=== PATIENT | female | born 1950 | race Two or more races ===

== ENCOUNTER 2025-01-06 16:25 | Inpatient (IN) | payer MEDICARE, MEDICAID ==
[~2025-01-06] VITALS: Ht 147.3 cm; Wt 60.1 kg
--- NOTE | 2025-01-06 16:56 | ED.PDOC ---
History of Present Illness HPI Comments 74-year-old female presents to the ER with daughter and with prior medical history of hypertension, diabetes: Surgical history of cardiac stent, appendectomy, hysterectomy, breast surgery and a chief complaint of abdominal pain. Daughter reports that the patient has been having dizziness, nausea, and lower abdominal pain recently. Daughter states that the patient fell two days ago and currently has left shoulder pain. Patient notes that she is unable to have a BM. Denies chills, fever, /V/D, SOB, CP. No other associated symptoms, modifiers, recent injuries or sick contacts present at this time. Chief Complaint: Abdominal Pain Time Seen by MD: 16:50 Reviewed Notes: Nurses Notes, Medications, Allergies Allergies: Coded Allergies: NO KNOWN ALLERGIES (Unverified , 01/06/25) Information Source: Patient Mode of Arrival: Ambulatory Severity: Moderate Timing: Came on: Gradually Duration: Since onset Prehospital treatment: None Past Medical History PAST MEDICAL HISTORY: DM, HTN Surgical History: Appendectomy, Hysterectomy, PTCA Surgical History (Other): Breast surgery COUNCILMAN History: No Pertinent COUNCILMAN History Family History Family History: Reviewed,noncontributory to illness, Unknown Social History Smoker: Non-Smoker Alcohol: Denies ETOH Use Drugs: Denies Drug Use Lives In: Home Constitutional: denies: chills, diaphoresis, fatigue, fever, malaise, sweats, weakness, others EENTM: denies: blurred vision, double vision, ear bleeding, ear discharge, ear drainage, ear pain, ear ringing, eye pain, eye redness, hearing loss, mouth pain, mouth swelling, nasal discharge, nose bleeding, nose congestion, nose pain, photophobia, tearing, throat pain, throat swelling, voice changes, others Respiratory: denies: cough, hemoptysis, orthopnea, SOB at rest, shortness of breath, SOB with excertion, stridor, wheezing, others Cardiovascular: denies: chest pain, dizzy spells, diaphoresis, Dyspnea on exertion, edema, irregular heart beat, left arm pain, lightheadedness, palpitations, PND, syncope, others Gastrointestinal: reports: abdominal pain, nausea; denies: abdomen distended, blood streaked bowels, constipated, diarrhea, dysphagia, difficulty swallowing, hematemesis, melena, poor appetite, poor fluid intake, rectal bleeding, rectal pain, vomiting, others Genitourinary: denies: abnormal vagina bleeding, burning, dyspareunia, dysuria, flank pain, frequency, hematuria, incontinence, pain, , vagina discharge, urgency, others Neurological: reports: dizziness; denies: fainting, headache, left sided numbness, left sided weakness, numbness, paresthesia, pre-existing deficit, right sided numbness, right sided weakness, seizure, speech problems, tingling, tremors, weakness, others Musculoskeletal: denies: back pain, gout, joint pain, joint swelling, muscle pain, muscle stiffness, neck pain, others Integumetry: denies: bruises, change in color, change in hair/nails, dryness, laceration, lesions, lumps, rash, wounds, others Allergic/Immunocompromised: denies: Difficulty Healing, Frequent Infections, Hives, Itching, others Hematologic/Lymphatic: denies: anemia, blood clots, easy bleeding, easy bruisi ng, swollen glands, others Endocrine: denies: excessive hunger, excessive sweating, excessive thirst, exce ssive urination, flushing, intolerance to cold, intolerance to heat, unexplained weight gain, unexplained weight loss, others Psychiatric: denies: anxiety, bipolar disorder, depression, hopeless, panic disorder, schizophrenia, sleepless, suicidal, others All Other Systems: Reviewed and Negative Physical Exam General Appearance: Moderate Distress, Normal HEENT: Normal ENT Inspection, Pharynx Normal, TMs Normal Neck: Full Range of Motion, Non-Tender, Normal, Normal Inspection Respiratory: Chest Non-Tender, Lungs Clear, No Accessory Muscle Use, No Respiratory Distress, Normal Breath Sounds Cardiovascular: No Edema, No JVD, No Murmur, No Gallop, Normal Peripheral Pulses, Regular Rate/Rhythm Breast Exam: Deferred Gastrointestinal: No Organomegaly, Non Tender, No Pulsatile Mass, Normal Bowel Sounds, Soft Genitalia: Deferred Pelvic: Deferred Rectal: Deferred Extremities: No calf tenderness, Normal capillary refill, Normal inspection, Normal range of motion, Non-tender, No pedal edema Musculoskeletal : Apperance: Normal Neurologic: Alert, full time paramedic II-XII nml as Tested, No Motor Deficits, Normal Affect, Normal Mood, No Sensory Deficits Cerebellar Function: NOT DONE Reflexes: NOT DONE Skin: Dry, Normal Color, Warm Peripheral Pulses: 3+ Radial (R), 3+ Radial (L) Lymphatic: No Adenopathy Was a procedure done? Was a procedure done?: No Differential Dx Considerations may include: Anemia Electrolyte imbalance X-Ray, Labs, Meds, VS Vital Signs Date Time Temp Pulse Resp B/P (MAP) Pulse Ox O2 Delivery O2 Flow Rate FiO2 01/06/25 16:27 97.7 72 15 140/71 95 97.7 Lab Test 01/06/25 17:07 Range/Units White Blood Count 7.1 4.4-10.8 10^3/uL Red Blood Count 4.16 4.0-5.20 10^6/uL Hemoglobin 13.0 12.2-16.2 g/dL Hematocrit 36.6 36.0-46.0 % Mean Corpuscular Volume 87.9 80.0-100.0 fL Mean Corpuscular Hemoglobin 31.2 28.0-32.0 pg Mean Corpuscular Hemoglobin Concent 35.5 32.0-36.0 g/dL Red Cell Distribution Width 13.8 11.8-14.3 % Platelet Count 245 140-450 10^3/uL Mean Platelet Volume 7.6 6.9-10.8 fL Neutrophils (%) (Auto) 64.4 37.0-80.0 % Lymphocytes (%) (Auto) 20.4 10.0-50.0 % Monocytes (%) (Auto) 12.2 H 0.0-12.0 % Eosinophils (%) (Auto) 2.3 0.0-7.0 % Basophils (%) (Auto) 0.7 0.0-2.0 % Neutrophils # (Auto) 4.6 1.6-8.6 10 ^3/uL Lymphocytes # (Auto) 1.4 0.4-5.4 10 ^3/uL Monocytes # (Auto) 0.9 0-1.3 10 ^3/uL Eosinophils # (Auto) 0.2 0-0.8 10 ^3/uL Basophils # (Auto) 0 0-0.2 10 ^3/uL Nucleated Red Blood Cells 0.0 % Sodium Level 127 L 136-145 mmol/L Potassium Level 4.8 3.5-5.1 mmol/L Chloride Level 93 L 98-107 mmol/L Carbon Dioxide Level 25 20-31 mmol/L Anion Gap 9 5-15 Blood Urea Nitrogen 14 9-23 mg/dL Creatinine 0.78 0.550-1.02 mg/dL Glomerular Filtration Rate Calc 79 >90 mL/min BUN/Creatinine Ratio 17.9 10.0-20.0 Serum Glucose 157 H 74-106 mg/dL Calcium Level 9.7 8.7-10.4 mg/dL Total Bilirubin 1.2 H 0.2-1.0 mg/dL Aspartate Amino Transferase (AST) 41 H 13-40 U/L Alanine Aminotransferase (ALT) 36 7-40 U/L Alkaline Phosphatase 74 46-116 U/L Troponin I High Sensitivity 304 *H </=34 ng/L Total Protein 7.2 5.7-8.2 g/dL Albumin 4.5 3.2-4.8 g/dL Lipase 54 H 12-53 U/L Patient alert. Complaining of epigastric discomfort. EKG reviewed does show changes. Vitals stable. She does have coronary artery disease. Was given aspirin. Troponin elevated. Was given Lovenox. Send EKG to Cardiology. Pancreas slightly inflamed not pancreatitis. Ultrasound. Sodium slightly low. Possibly will need GI consultation for endoscope. Echocardiogram. Explained to the family. Continue to monitor. Time of 1ST Reevaluation: 17:20 Reevaluation 1ST: Unchanged Patient Education/Counseling: Diagnosis, Treatment, Prognosis Family Education/Counseling: No Family Present SEPSIS Sepsis Screen Date sepsis recognized/suspect: Jan 06, 2025 Time Sepsis recognized/suspect: 1628 Recent Procedure: No On Antibiotic Therapy: No Respiratory Rate >20: No Heart Rate >90: No Temp<36 C (96.8 F) or >38.3 C: No SBP <90 or MAP <65 mmHG: No New Acute Mental Status Change: No Is the patient on CPAP, BIPAP,: No Physician Orders Troponin-I Hs (01/06/25 18:00) Troponin-I Hs (01/07/25 00:00) Troponin-I Hs (01/07/25 03:00) Urinalysis (01/06/25 16:47) Sodium Chloride 0.9% (01/06/25 17:00) Ct Ab Pel Wo Con-No Oral Or Iv (01/06/25 16:47) Troponin-I Hs (01/06/25 19:47) Enoxaparin Sodium (Lovenox) (01/06/25 17:45) * Cardiology Consult (01/06/25 17:35) Vital Signs Date Time Temp Pulse Resp B/P (MAP) Pulse Ox O2 Delivery O2 Flow Rate FiO2 01/06/25 16:27 97.7 72 15 140/71 95 97.7 Laboratory Tests Test 01/06/25 17:07 White Blood Count 7.1 10^3/uL (4.4-10.8) Departure 1 Departure Time of Disposition: 17:27 Impression: Primary Impression: Chest pain of unknown etiology Additional Impressions: NSTEMI (non-ST elevated myocardial infarction) Hyponatremia Gastritis Qualified Codes: K29.00 - Acute gastritis without bleeding Disposition: ADMITTED INPATIENT Admit to: Med Surg Condition: Guarded Critical Care Note Critical Care Time?: Yes (90 min-critical care time only) Stability Stability form required: No Heart Score Heart Score: Heart Score Response (Comments) Value History Slightly Suspicious 0 EKG Normal 0 Age >65 2 Risk Factors >3 or Hx ASHD 2 Troponin Normal limit 0 Total 4 I personally scribed for BEKA OQUENDO MD ([email or web address]) on 01/06/25 at 16:56. Electronically submitted by Cristian Carrillo ([email or web address]). BEKA OQUENDO MD Jan 06, 2025 16:56
[2025-01-06 17:25] LABS: Hematocrit 36.6 % (36.0-46.0); Hemoglobin 13.0 g/dL (12.2-16.2); Mean Corpuscular Hemoglobin 31.2 pg (28.0-32.0); Mean Corpuscular Volume 87.9 fL (80.0-100.0); Nucleated Red Blood Cells % 0.0 %
[2025-01-06 17:31] LABS: Alanine Aminotransferase 36 U/L (7-40); Albumin 4.5 g/dL (3.2-4.8); Alkaline Phosphatase 74 U/L (46-116); Anion Gap 9 (5-15); BUN/Creatinine Ratio 17.9 (10.0-20.0); Bilirubin, Total 1.2 mg/dL (0.2-1.0); Blood Urea Nitrogen 14 mg/dL (9-23); Calcium 9.7 mg/dL (8.7-10.4); Carbon Dioxide 25 mmol/L (20-31); Chloride 93 mmol/L (98-107); Glucose 157 mg/dL (74-106); Lipase 54 U/L (12-53); Potassium 4.8 mmol/L (3.5-5.1); Sodium 127 mmol/L (136-145); Total Protein 7.2 g/dL (5.7-8.2)
[2025-01-06] MEDS: SODIUM CHLORIDE 0.9% 1,000 ML IVB ONE (18:14)
[2025-01-06] MEDS: ONDANSETRON HCL 4 MG/2 ML VIAL IV ONE (18:23)
[2025-01-06] MEDS: ENOXAPARIN SOD 60 MG/0.6 ML SYRINGE SC ONE (18:24)
[2025-01-06] MEDS: MORPHINE SULFATE 4 MG/ML SYR/VIAL IV ONE (18:24)
--- NOTE | 2025-01-06 18:48 | DVH ---
Exam: CT CT AB PEL WO CON-NO ORAL OR IV History: gastritis Comparison Study: None TECHNIQUE: Multidetector CT of the abdomen and pelvis was performed from lung bases to pubic symphysi s. Imaging was performed without IV contrast. Axial, coronal, and sagittal multiplanar reformats were obtained from the axial data set by the technologist. RADIATION DOSE: DLP 358.31 mGy.cm; CTDI vol 6.91 mGy. Findings: Lungs: Right lower lobe peripheral nodular opacities. Right lower lobe granuloma. Heart: No cardiomegaly or pericardial effusion. Severe coronary atherosclerosis versus stents. Liver: Unremarkable. Gallbladder: Cholecystectomy. Spleen: Unremarkable Pancreas: Unremarkable Adrenals: Unremarkable Kidneys: Nonobstructive left nephrolithiasis. GI tract: Small hiatal hernia. Diverticulosis without evidence of acute diverticulitis. : Unremarkable. Vasculature: Mild aortoiliac atherosclerosis. Lymphadenopathy: Absent Peritoneum: No ascites Musculoskeletal: Severe multilevel degenerative changes of the thoracolumbar spine. Soft tissues: Miniscule fat containing periumbilical hernia. Bilateral gluteal injection granulomas. Unremarkable Impression: 1. No acute abdominopelvic abnormalities. 2. Diverticulosis without evidence of acute diverticulitis. 3. Small hiatal hernia. 4. Nonobstructive left nephrolithiasis. 5. Right lower lobe peripheral nodular opacities may reflect an infectious / inflammatory etiology.
[2025-01-06 19:22] LABS: Urine Protein, UAD Negative (Negative)
[2025-01-06] MEDS ORDERED: ONDANSETRON HCL 4 MG/2 ML VIAL IV PRN (22:30)
[2025-01-06] MEDS ORDERED: ACETAMINOPHEN 325 MG TAB PO PRN (22:30)
[2025-01-06] MEDS ORDERED: ATORVASTATIN 20 MG TAB PO SCH (23:00)
--- NOTE | 2025-01-06 23:14 | DVHHPRES ---
History of Present Illness Resident Creating Document: JAYNE ESCOBAR RESIDENT History of Present Illness Patient is a Albanian-speaking 74-year-old female with past medical history of diabetes mellitus, hypertension, breast cancer, gastritis came to the ED with chief complaint of lower abdominal pain which is 7/10 in intensity, radiating to bilateral flanks, associated with nausea ,urinary frequency, burning sensation with urinating, dysuria 1 episode of vomiting since 4 days, and dizziness since 1 week. Patient states that she did not fall but has injured her left shoulder and left ankle due to loss of balance. Patient also complained of mild chest pain after coming to the hospital. Patient denies any fever, chills, diarrhea, shortness of breath, palpitations, headache, dizziness. Patient is compliant with home medications. On arrival troponins were elevated. Patient is admitted for further management. Past medical history of diabetes mellitus, hypertension, breast cancer, gastritis Surgical history: Hysterectomy, appendicectomy, cholecystectomy, PTCA, malignant tumor removed in left breast, Family history: Reviewed, noncontributory Personal history: Denies any smoking, drinking, drug use Lives with: Family PCP: Dr. Felipe Review of Systems Constitutional: No: Fever, Chills, Sweats, Weakness, Malaise, Other Eyes: No: Pain, Vision change, Conjunctivae inflammation, Eyelid inflammation, Other, Redness ENT: No: Ear pain, Ear discharge, Nose pain, Nose discharge, Nose congestion, Mouth pain, Mouth swelling, Throat pain, Throat swelling, Other Respiratory: No: Cough, Dry, Shortness of breath, SOB with excertion, Wheezing, Hemoptysis, Pleuritic Pain, Sputum, Wheezing, Other Cardiovascular: No: Chest Pain, Palpitations, Orthopnea, Paroxysmal Noc. Dyspnea, Edema, Lt Headedness, Other Gastrointestinal: Nausea, Vomiting, Abdominal Pain; No: Diarrhea, Constipation, Melena, Hematochezia, Other Genitourinary: Dysuria, Frequency; No Incontinence, No Hematuria, No Retention, No Other Musculoskeletal: No: other, neck pain, shoulder pain, arm pain, back pain, hand pain, leg pain, foot pain Skin: No: Rash, Lesions, Jaundice, Bruising, Other Neurological: No: Weakness, Numbness, Incoordination, Change in speech, Confusion, Seizures, Other Allergies: Coded Allergies: NO KNOWN ALLERGIES (Unverified , 01/06/25) Medications Current Medications Medications Dose Ordered Sig/Maciel Route Start Time Stop Time Status Last Admin Dose Admin Ondansetron HCl 4 mg Q4HP PRN IV 01/06/25 22:30 Acetaminophen 650 mg Q6HP PRN PO 01/06/25 22:30 Atorvastatin Calcium 40 mg ONCE PO 01/06/25 23:00 UNV Aspirin 81 mg ONCE PO 01/06/25 23:00 UNV Exam Vital Signs Vital Signs Date Time Temp Pulse Resp B/P (MAP) Pulse Ox O2 Delivery O2 Flow Rate FiO2 01/06/25 18:24 67 20 114/66 01/06/25 18:20 98.0 97 98.0 Exam General: Patient alert and oriented in person, place and time. Patient following commands. In mild distress HEENT: Normocephalic, atraumatic, moist mucous membranes Respiratory/pulmonary: Clear lungs bilaterally, vesicular murmurs present in almost all lung ya, no associated crackles or wheezes. Cardiovascular: Normal heart sounds S1 and S2 with no associated murmurs Abdomen: Bilateral flank tenderness, CVA tenderness positive, suprapubic tenderness Extremities: There is no peripheral edema present at the lower extremities. Peripheral Pulses: 3+ Radial (R). 3+ Radial (L). 3+ Dorsalis pedis (R). 3+ Dorsalis pedis(L) Skin: No rashes or pruritus, there is no sacral edema present at this time. Neurological: Intact cranial nerves with no focal neurologic deficits Psych/mood: Psych/mood normal Labs/Xrays Labs Test 01/06/25 20:37 01/06/25 17:45 01/06/25 17:07 Range/Units Troponin I High Sensitivity 220 *H </=34 ng/L Urine Color Colorless Yellow Urine Clarity Turbid H Clear Urine pH 6.5 5.0-9.0 Urine Specific [place] 1.005 1.001-1.035 Urine Protein Negative Negative Urine Ketones Negative Negative Urine Blood Negative Negative /uL Urine Nitrite Negative Negative Urine Bilirubin Negative Negative Urine Urobilinogen Normal Negative mg/dL Urine Leukocyte Esterase Negative Negative /uL Urine RBC 1 0 - 4 /hpf Urine Microscopic WBC 2 0-5 /HPF Urine Squamous Epithelial Cells Mod <5 /hpf Urine Bacteria None seen None Seen /hpf Urine Glucose Normal Normal mg/dL White Blood Count 7.1 4.4-10.8 10^3/uL Red Blood Count 4.16 4.0-5.20 10^6/uL Hemoglobin 13.0 12.2-16.2 g/dL Hematocrit 36.6 36.0-46.0 % Mean Corpuscular Volume 87.9 80.0-100.0 fL Mean Corpuscular Hemoglobin 31.2 28.0-32.0 pg Mean Corpuscular Hemoglobin Concent 35.5 32.0-36.0 g/dL Red Cell Distribution Width 13.8 11.8-14.3 % Platelet Count 245 140-450 10^3/uL Mean Platelet Volume 7.6 6.9-10.8 fL Neutrophils (%) (Auto) 64.4 37.0-80.0 % Lymphocytes (%) (Auto) 20.4 10.0-50.0 % Monocytes (%) (Auto) 12.2 H 0.0-12.0 % Eosinophils (%) (Auto) 2.3 0.0-7.0 % Basophils (%) (Auto) 0.7 0.0-2.0 % Neutrophils # (Auto) 4.6 1.6-8.6 10 ^3/uL Lymphocytes # (Auto) 1.4 0.4-5.4 10 ^3/uL Monocytes # (Auto) 0.9 0-1.3 10 ^3/uL Eosinophils # (Auto) 0.2 0-0.8 10 ^3/uL Basophils # (Auto) 0 0-0.2 10 ^3/uL Nucleated Red Blood Cells 0.0 % Sodium Level 127 L 136-145 mmol/L Potassium Level 4.8 3.5-5.1 mmol/L Chloride Level 93 L 98-107 mmol/L Carbon Dioxide Level 25 20-31 mmol/L Anion Gap 9 5-15 Blood Urea Nitrogen 14 9-23 mg/dL Creatinine 0.78 0.550-1.02 mg/dL Glomerular Filtration Rate Calc 79 >90 mL/min BUN/Creatinine Ratio 17.9 10.0-20.0 Serum Glucose 157 H 74-106 mg/dL Calcium Level 9.7 8.7-10.4 mg/dL Total Bilirubin 1.2 H 0.2-1.0 mg/dL Aspartate Amino Transferase (AST) 41 H 13-40 U/L Alanine Aminotransferase (ALT) 36 7-40 U/L Alkaline Phosphatase 74 46-116 U/L Total Protein 7.2 5.7-8.2 g/dL Albumin 4.5 3.2-4.8 g/dL Lipase 54 H 12-53 U/L SEPSIS Sepsis Screen Date sepsis recognized/suspect: Jan 06, 2025 Time Sepsis recognized/suspect: 1628 Recent Procedure: No On Antibiotic Therapy: No Respiratory Rate >20: No Heart Rate >90: No Temp<36 C (96.8 F) or >38.3 C: No SBP <90 or MAP <65 mmHG: No New Acute Mental Status Change: No Is the patient on CPAP, BIPAP,: No Physician Orders Troponin-I Hs (01/07/25 00:00) Troponin-I Hs (01/07/25 03:00) Ct Ab Pel Wo Con-No Oral Or Iv (01/06/25 16:47) * Cardiology Consult (01/06/25 17:35) Electrocardigram (01/06/25 17:43) Electrocardigram (01/06/25 18:43) Electrocardigram (01/06/25 20:43) Admit (01/06/25 22:23) Allergies (01/06/25 22:23) Ondansetron Hcl (Zofran) (01/06/25 22:30) Complete Blood Count (01/07/25 04:00) Comprehensive Metabolic Panel (01/07/25 04:00) Npo (Nothing By Mouth) Diet (01/07/25 Breakfast) Condition: Serious (01/06/25 22:23) Acetaminophen Tablet (Tylenol Tablet) (01/06/25 22:30) Bedrest With Bathroom Privileg (01/06/25 22:23) Oxygen By Nasal Cannula (01/06/25 22:23) Stat Ekg For Chest Pain (01/06/25 22:23) Notify Md Of Changes From Base (01/06/25 22:23) Burr Machine Operator For 24 Hours (01/06/25 22:23) Emergency Dysrhythmia Protocol (01/06/25 22:23) Rhythm Strips Once Every Shift (01/06/25 22:23) Lactic Acid W/ Reflex Order (01/06/25 22:47) Prothrombin Time W/ Inr (01/06/25 22:47) Lipase (01/07/25 04:00) Drug Screen (01/06/25 22:47) Urine Bacterial Culture (01/06/25 22:47) Mrsa Screen (01/06/25 22:47) Aspirin Tablet (01/07/25 10:00) Atorvastatin (Lipitor) (01/07/25 22:00) Docusate Sodium Capsule (Colace Capsule) (01/06/25 23:15) Sodium Chloride 0.9% (01/06/25 23:15) Urine Sodium (01/06/25 23:08) Osmolality Urine (01/06/25 23:08) Osmolality, Serum (01/06/25 23:08) Vital Signs Date Time Temp Pulse Resp B/P (MAP) Pulse Ox O2 Delivery O2 Flow Rate FiO2 01/06/25 18:24 67 20 114/66 01/06/25 18:20 98.0 67 20 114/66 (82) 97 98.0 01/06/25 16:35 73 01/06/25 16:27 97.7 72 15 140/71 95 97.7 Laboratory Tests Test 01/06/25 17:07 White Blood Count 7.1 10^3/uL (4.4-10.8) Medications Medications Dose Ordered Sig/Maciel Route Start Time Stop Time Status Last Admin Dose Admin Aspirin 325 mg ONCE ONCE PO 01/06/25 17:00 01/06/25 17:01 DC 01/06/25 18:22 325 MG Enoxaparin Sodium 60 mg ONCE ONCE SC 01/06/25 17:45 01/06/25 17:46 DC 01/06/25 18:24 60 MG Morphine Sulfate 4 mg ONCE ONCE IV 01/06/25 17:00 01/06/25 17:01 DC 01/06/25 18:24 4 MG Ondansetron HCl 4 mg ONCE ONCE IV 01/06/25 17:00 01/06/25 17:01 DC 01/06/25 18:23 4 MG Sodium Chloride 1,000 ml @ 1,000 mls/hr Q1H ONCE IVB 01/06/25 17:00 01/06/25 17:59 DC 01/06/25 18:14 1,000 MLS/HR Assessment/Plan Assessment/Plan Assessment and Plan # intractable abdominal pain likely due to pyelonephritis # left nephrolithiasis - CT abdomen : No acute abdominopelvic abnormalities. -CVA tenderness present. -IV fluids given -IV ceftriaxone - urine culture ordered, pending - lactate order, normal # Elevated Trops, likely NSTEMI type 2, NSTEMI type 1 not ruled out yet # chest pain, rule out ACS, likely stable angina, possible referred pain from pyelonephritis # chest pain likely referred pain - elevated troponins, monitor labs in a.m. - aspirin 325 mg given in the ER, will start aspirin 81 mg, atorvastatin - cardiology consulted - repeat EKG, pending -repeat tropes, pending # hypovoluemic hyponatremia likely due to vomiting - IV fluids -ordered urine osm, sodium , serum osm # mild transaminitis - monitor a.m. labs # diverticulosis without acute diverticulitis # small hiatal hernia - follow-up outpatient # 5 mm right lower lobe peripheral nodule - follow-up outpatient in 6-[address], follow up with pulm # diabetes mellitus HbA1c: 6.4 -mild sliding scale # hypertension -Continue home meds #History of breast cancer - follow-up with oncology # GERD resume home meds PPI prophylaxis: Pantoprazole DVT prophylaxis: Not indicated Goals of care addressed with the patient for more than 37 minutes: Full code status Case discussed with Dr. Fu , patient and nurse Plan discussed with: Patient My Orders Orders - JAYNE ESCOBAR RESIDENT Procedure Category Date Status Time Admit ADMIT 01/06/25 Transmitted 22:23 Allergies DANTE 01/06/25 In Process 22:23 Ondansetron Hcl PHA 01/06/25 In Process (Zofran) 22:30 Complete Blood Count LAB 01/07/25 Verified 04:00 Comprehensive LAB 01/07/25 Verified Metabolic Panel 04:00 Npo (Nothing By DIET 01/07/25 Transmitted Mouth) Diet Breakfast Condition: Serious DANTE 01/06/25 In Process 22:23 Acetaminophen Tablet PHA 01/06/25 In Process (Tylenol Tablet) 22:30 Bedrest With Bathroom DANTE 01/06/25 In Process Privileg 22:23 Oxygen By Nasal RT 01/06/25 Transmitted Cannula 22:23 Stat Ekg For Chest DANTE 01/06/25 In Process Pain 22:23 Notify Of Changes DANTE 01/06/25 In Process From Base 22:23 Burr Machine Operator For DANTE 01/06/25 In Process 24 Hours 22:23 Emergency Dysrhythmia DANTE 01/06/25 In Process Protocol 22:23 Rhythm Strips Once DANTE 01/06/25 In Process Every Shift 22:23 Lactic Acid W/ Reflex LAB 01/06/25 Logged Order 22:47 Prothrombin Time W/ LAB 01/06/25 In Process INR 22:47 Lipase LAB 01/07/25 Verified 04:00 Drug Screen LAB 01/06/25 Logged 22:47 Urine Bacterial KELLY 01/06/25 Logged Culture 22:47 Mrsa Screen KELLY 01/06/25 Logged 22:47 Aspirin Tablet PHA 01/07/25 In Process 10:00 Atorvastatin (Lipitor) PHA 01/07/25 In Process 22:00 Docusate Sodium PHA 01/06/25 Logged Capsule (Colace 23:15 Sodium Chloride 0.9% PHA 01/06/25 Logged 23:15 Urine Sodium LAB 01/06/25 Logged 23:08 Osmolality Urine LAB 01/06/25 Logged 23:08 Osmolality, Serum LAB 01/06/25 Logged 23:08 Date of Service: Jan 07, 2025 Billing Provider: LIAM FU MD Common Visit Codes: 00057-AIXDRWA INP/OBS CARE (HIGH) Secondary Visit Codes: 80359-GYICIZAD CARE PLAN 30 MINUTES JAYNE ESCOBAR RESIDENT Jan 06, 2025 23:14 MYA MURRAY RESIDENT Jan 07, 2025 08:23
[2025-01-06] MEDS ORDERED: DOCUSATE SOD 100 MG CAP PO PRN (23:15)
[2025-01-06 23:20] LABS: INR 1.06 (0.9-1.15); Prothrombin Time 11.2 sec (9.3-11.8)
[2025-01-06 23:39] LABS: Amphetamine Screen, Urine Neg (NEGATIVE); Barbiturate Scree,Urine Neg (NEGATIVE); Benzodiazephine Screen, Urine Neg (NEGATIVE); Cannabinoid Screen, Urine Neg (NEGATIVE); Cocaine Screen, Urine Neg (NEGATIVE); Opiate Scree,Urine Neg (NEGATIVE); Phencyclidine Screen, Urine Neg (NEGATIVE)
[2025-01-07] VITALS (8 sets, daily range): BP systolic 104–148; BP diastolic 58–91; PULSE 61–79; RESP 12–20; TEMP 97.1–98.6; O2SAT 95–99
[2025-01-07] MEDS: SODIUM CHLORIDE 0.9% 1,000 ML IV SCH (04:05)
[2025-01-07] MEDS: PANTOPRAZOLE 40 MG/10 ML VIAL INJ IV ONE (04:05)
[2025-01-07 04:44] LABS: Hematocrit 37.0 % (36.0-46.0); Hemoglobin 13.2 g/dL (12.2-16.2); Mean Corpuscular Hemoglobin 31.5 pg (28.0-32.0); Mean Corpuscular Volume 88.3 fL (80.0-100.0); Nucleated Red Blood Cells % 0.0 %
[2025-01-07 05:08] LABS: Alanine Aminotransferase 38 U/L (7-40); Albumin 4.3 g/dL (3.2-4.8); Alkaline Phosphatase 54 U/L (46-116); Anion Gap 8 (5-15); BUN/Creatinine Ratio 14.7 (10.0-20.0); Blood Urea Nitrogen 11 mg/dL (9-23); Calcium 9.4 mg/dL (8.7-10.4); Carbon Dioxide 26 mmol/L (20-31); Chloride 102 mmol/L (98-107); Lipase 45 U/L (12-53); Potassium 4.5 mmol/L (3.5-5.1); Sodium 136 mmol/L (136-145); Total Protein 6.9 g/dL (5.7-8.2)
[2025-01-07 05:09] LABS: Bilirubin, Total 1.1 mg/dL (0.2-1.0)
[2025-01-07 05:10] LABS: Glucose 108 mg/dL (74-106)
[2025-01-07] MEDS ORDERED: ENOXAPARIN SOD 60 MG/0.6 ML SYRINGE SC ONE (06:00)
--- NOTE | 2025-01-07 06:11 | ECG ---
[facility] Test Date: 2025-01-06 Test Time: 16:35:53 Pat Name: KENNETH ESCOBEDO Department: ED Room: [address] [place] [address] Gender: F Transfer Coordinator: claudy : 1950 Requested By: BEKA OQUENDO Order Number: [id number] Reading MD: Edwin Pretty Measurements Intervals [place] Rate: 73 P: 46 PA: 256 QRS: 79 QRSD: 144 T: -21 QT: 401 QTc: 442 Interpretive Statements Sinus rhythm Prolonged PA interval Right bundle branch block ST depr, consider ischemia, anterolateral lds Electronically Signed On 01-07-2025 14:28:02 PDT by Edwin Pretty Please click the below link to view image of tracing.
[2025-01-07] MEDS: MORPHINE SULFATE INJ 2 MG/ml SYRG IV ONE (07:08)
[2025-01-07] MEDS: PANTOPRAZOLE 40 MG/10 ML VIAL INJ IV SCH (08:48)
[2025-01-07] MEDS ORDERED: LISI20TA56 (08:54)
[2025-01-07] MEDS ORDERED: ISOS1TAB28 PO (08:54)
[2025-01-07] MEDS ORDERED: METF-372 PO (08:54)
[2025-01-07] MEDS ORDERED: ATEN25TA PO (08:54)
[2025-01-07] MEDS ORDERED: ASPI-325 PO (08:54)
[2025-01-07] MEDS ORDERED: LETR2.5T6 PO (08:54)
[2025-01-07] MEDS ORDERED: CLOP75TA70 PO (08:54)
[2025-01-07] MEDS ORDERED: LISI-285 (08:55)
[2025-01-07] MEDS: INSULIN LISPRO (HUMAN) 100 UNITS/ML ML SC SCH (18:03)
--- NOTE | 2025-01-07 19:07 | DVHPNRES ---
Progress Note Date Seen: Jan 07, 2025 Resident Creating Document: ZULEMA BLANTON RESIDENT Medical Necessity Reason Pt with a Central, PICC or Fol: No Subjective Review of Systems This is a 54-year-old female who presents to ER with a complaint of lower abdominal pain for last 3 days which is 7/10 intensity, localized, mild relieved with Tylenol and no aggravating factor. Patient lower abdominal pain associated with nausea but no vomiting. Patient also complained of chest pain during arrival to the hospital . Patient currently denies any SOB, friends headache, diarrhea, or any acute symptoms. Past medical history : NIDDM, HTN, osteoporosis, coronary artery disease status post PCI with 1 stent placed in 2019, breast cancer status post surgery, radiotherapy and chemotherapy, GERD Surgical history: Hysterectomy, cholecystectomy, PTCA, malignant tumor removed in left breast status post surgery Family history: noncontributory Personal history: Denies any smoking, drinking, drug use Lives with: Family Profiling Machine Setup Operator: Dr. Felipe Patient is seen and examined at bedside. Currently has no new complaints. Completed post void urine bladder scan which showed over 300 mL of urine. Interpreted as neurogenic bladder. Objective vital signs Vital Sign Date Time Temp Pulse Resp B/P (MAP) Pulse Ox O2 Delivery O2 Flow Rate FiO2 01/07/25 16:48 98.0 71 16 129/91 (104) 99 98.0 01/07/25 07:55 Room Air* 0 21 medications Current Medications Medications Dose Ordered Sig/Maciel Route Start Time Stop Time Status Last Admin Dose Admin Ondansetron HCl 4 mg Q4HP PRN IV 01/06/25 22:30 Acetaminophen 650 mg Q6HP PRN PO 01/06/25 22:30 Atorvastatin Calcium 40 mg ONCE PO 01/06/25 23:00 UNV Aspirin 81 mg ONCE PO 01/06/25 23:00 UNV Aspirin 81 mg DAILY PO 01/07/25 10:00 01/07/25 08:48 81 MG Atorvastatin Calcium 40 mg HS PO 01/07/25 22:00 Sodium Chloride 1,000 ml @ 75 mls/hr [id number] IV 01/06/25 23:15 01/07/25 04:05 75 MLS/HR Ceftriaxone Sodium/Dextrose 50 ml @ 50 mls/hr DAILY IV 01/08/25 02:30 Pantoprazole Sodium 40 mg DAILY IV 01/07/25 10:00 01/07/25 08:48 40 MG Isosorbide Mononitrate 30 mg DAILY PO 01/08/25 10:00 Lisinopril 20 mg DAILY PO 01/08/25 10:00 Insulin Human Lispro AC SC 01/07/25 17:00 01/07/25 18:03 1 UNITS Enoxaparin Sodium 40 mg DAILY SC 01/08/25 10:00 Examination General: Patient alert and oriented in person, place and time. Patient following commands. HEENT: Normocephalic, atraumatic, moist mucous membranes Respiratory/pulmonary: Clear lungs bilaterally, vesicular murmurs present in almost all lung ya, no associated crackles or wheezes. Cardiovascular: Normal heart sounds S1 and S2 with no associated murmurs Abdomen: Soft, suprapubic area tender on deep palpation Extremities: There is no peripheral edema present at the lower extremities. Peripheral Pulses: 3+ Radial (R). 3+ Radial (L). 3+ Dorsalis pedis (R). 3+ Dorsalis pedis(L) Skin: No rashes or pruritus, there is no sacral edema present at this time. Neurological: Intact cranial nerves with no focal neurologic deficits laboratory and microbiology Laboratory Tests 01/07/25 03:55 Test 01/07/25 03:55 Range/Units Serum Glucose 108 H 74-106 mg/dL Problem List/Assessment/Plan Problem List/Assessment/Plan # NSTEMI probable type 2 secondary to demand ischemia - elevated troponins - aspirin 325 mg given in the ER, continue aspirin 81 mg, -atorvastatin -isosorbide mononitrate 30 mg p.o. daily - cardiology consulted - EKG shows sinus rhythm, prolonged AL interval, ST depression consider ischemia anterolateral # Intractable lower abdominal pain likely due to cystitis or pancreatitis - CT abdomen : No acute abdominopelvic abnormalities. -admitted to suprapubic area tender on deep palpation -lipase lipase 54 -IV fluids given -IV ceftriaxone - urine culture # Diverticulosis without acute diverticulitis # small hiatal hernia - follow-up outpatient # Right lower lobe peripheral nodule/Right lower lobe granuloma - outpatient follow-up # Diabetes mellitus -uncontrolled (HbA1c: 6.4 %) -mild sliding scale -home medication-metformin #Osteoporosis Alendronate 70 mg Q weekly # Essential hypertension -lisinopril 20 mg p.o. daily Blood pressure #History of breast cancer Continue letrozole 2.5 mg daily - follow-up with oncology # Hypovolemic hyponatremia likely due to vomiting - serum sodium 127 and repeat serum sodium level 136 BMP # Mild transaminitis Monitor labs # GERD Pantoprazole PPI prophylaxis: Pantoprazole DVT prophylaxis: Lovenox Goals of care discussions. More than 23 minute spent with patient. Code status. Case discussed with Dr. Song Plan discussed with: Patient, Other (Nurse) My Orders My Orders Orders - ZULEMA BLANTON RESIDENT Procedure Category Date Status Time Consistent DIET 01/07/25 Transmitted Carb(Ccho)Diabetes Dinner Isosorbide PHA 01/08/25 In Process Mononitrate Tablet 10:00 Communication Order ORDERS 01/07/25 Transmitted 15:31 Lisinopril Tablet PHA 01/08/25 In Process (Zestril Tablet) 10:00 Insulin Lispro PHA 01/07/25 In Process (Human) (Humalog) 17:00 Enoxaparin Sodium PHA 01/08/25 In Process (Lovenox) 10:00 Date of Service: Jan 07, 2025 Billing Provider: CANDICE SONG MD Common Visit Codes: [id number] INP/OBS CARE(HIGH) ZULEMA BLANTON RESIDENT Jan 07, 2025 19:07 ALBERT CARLSON RESIDENT Jan 09, 2025 17:30 CANDICE SONG MD Jan 12, 2025 21:25
[2025-01-07] MEDS: ATORVASTATIN 20 MG TAB PO SCH (21:28)
[2025-01-08] VITALS (7 sets, daily range): BP systolic 99–164; BP diastolic 57–75; PULSE 61–72; RESP 16–20; TEMP 36.7; O2SAT 94–99
--- NOTE | 2025-01-08 06:01 | DVHINCON2 ---
DATE OF CONSULTATION: 01/07/2025 CARDIOLOGY CONSULTATION REFERRING PHYSICIAN: Dr. Prather. CONSULTING PHYSICIAN: Remy Felipe MD. INDICATION: Elevated troponin. HISTORY OF PRESENT ILLNESS: The patient is a 74-year-old female with history of coronary artery disease status post angioplasty, history of hypertension and diabetes, initially presented to the hospital with complaints of abdominal and flank pain and vomiting, admitted with diagnosis of pyelonephritis. The patient's troponin is noted to be mildly elevated. The patient denies any chest pain at this point. Denies any shortness of breath. The patient states that her abdominal pain has improved. PAST MEDICAL HISTORY: * History of CAD status post angioplasty. * Diabetes. * Hypertension. MEDICATIONS: Per med rec. ALLERGIES: No known drug allergies. PHYSICAL EXAMINATION: GENERAL: She is alert and awake, in no form of cardiopulmonary distress. VITAL SIGNS: Blood pressure 145/58, pulse 61 per minute, saturation 97%. HEENT: No carotid bruits. No jugular venous distention. CHEST: Bilateral air entry. CARDIOVASCULAR: Precordial and carotid pulses palpable. Normal S1, S2. Regular rate and rhythm. No appreciable gallop or rubs. EXTREMITIES: No peripheral edema. DIAGNOSTIC DATA: CBC is normal. Sodium 136, potassium 4.5, creatinine 0.7. Troponin first set elevated 304, second set 290 and third set elevated at 220. ASSESSMENT: * Abdominal pain. * pyeolonephritis. * Elevated troponin, likely secondary to demand ischemia. * History of CAD status post angioplasty. * Diabetes. * Hypertension. RECOMMENDATIONS: * Continue antibiotics. * Continue aspirin * continue statin therapy. * Obtain echo. * If echo unremarkable, no further inpatient cardiac workup indicated. * Continue telemetry monitoring. Thank you for allowing me to participate in the care of this patient. MD WHITLEY Lee/JOSHUA/MARIA DOLORES TID: [id number] RECEIPT: [id number] [facility] MED[facility] CENTERBrittany
[2025-01-08 06:37] LABS: Hematocrit 36.7 % (36.0-46.0); Hemoglobin 12.9 g/dL (12.2-16.2); Mean Corpuscular Hemoglobin 31.6 pg (28.0-32.0); Mean Corpuscular Volume 90.1 fL (80.0-100.0); Nucleated Red Blood Cells % 0.1 %
[2025-01-08 06:38] LABS: Anion Gap 10 (5-15); Carbon Dioxide 22 mmol/L (20-31); Chloride 105 mmol/L (98-107); Potassium 3.7 mmol/L (3.5-5.1); Sodium 137 mmol/L (136-145)
[2025-01-08 06:40] LABS: Calcium 9.0 mg/dL (8.7-10.4)
[2025-01-08 06:44] LABS: BUN/Creatinine Ratio 12.1 (10.0-20.0)
[2025-01-08 06:56] LABS: Blood Urea Nitrogen 7 mg/dL (9-23); Glucose 113 mg/dL (74-106)
[2025-01-08] MEDS: LISINOPRIL 20 MG TAB PO SCH (09:57)
[2025-01-08] MEDS: ISOSORBIDE MONONITRATE ER 60 MG TAB PO SCH (09:57)
[2025-01-08] MEDS: ENOXAPARIN SOD 40 MG/0.4 ML SYRINGE SC SCH (09:58)
[2025-01-08] MEDS: ERGOCALCIFEROL 50,000 UNIT(1.25MG) CAP PO SCH (12:50)
--- NOTE | 2025-01-08 13:26 | DVHSR ---
APPROVED REPORT EXAM: Two-dimensional and M-mode echocardiogram with Doppler and color Doppler. Blood Pressure: 147/70 mmHg INDICATION Chest Pain RISK FACTORS Height: 4'10", Weight: 132 DIMENSIONS LVDd4.8 (3.8-5.7cm)LA (2D)4.0 (1.9-4.0cm)Aortic Root3.0 (2.0-3.7cm) LVDs3.1 (2.5-4.0cm)LA (MM) (1.9-4.0cm)Aortic Cusp Exc1.6 (1.5-2.0cm) EF (%) 63.0 (55-70%)Rt. Atrium3.4 (1.9-4.0cm)Asc. Aorta3.3 cm IVSd1.0 (0.7-1.1cm)RV (D)3.5 (1.8-2.4cm) Mitral Valve MitralMitral Stenosis E wave0.60m/sMV Mean GR.mmHg A wave0.87m/sMV Peak GR.mmHg E/A ratio0.72D MVAcm2 DECEL [id number] 1/2 Timems Aortic Valve Aortic ValveAortic Stenosis V11.04m/Brandon Mean GR.6mmHg V21.58m/Brandon Peak GR.10mmHg LVOT Diameter1.9 (1.8-2.4cm)Doppler AVA1.87cm2 Pulmonic Valve V20.97m/s Other Information Quality : Technically LimitedRhythm : Technically limited study due to body habitus. Conclusion There is [id number]-tekolmqs concentric left ventricular hypertrophy Left ventricular systolic function is preserved Ejection fraction is estimated at 60% Aortic valve is tricuspid, sclerotic without evidence of stenosis There is yons-iw-khejfiap mitral regurgitation There is mild tricuspid regurgitation There is no pericardial effusion
[2025-01-08] MEDS ORDERED: PANT40T PO (14:28)
[2025-01-08] MEDS ORDERED: CEPH250C PO (14:28)
[2025-01-08] MEDS ORDERED: ERGO1CAP23 PO (14:28)
--- NOTE | 2025-01-08 21:33 | DVHDSRES ---
Discharge Summary Date of Admission Resident Creating Document: ZULEMA BLANTON RESIDENT Jan 06, 2025 at 22:23 Date of Discharge: Jan 08, 2025 Labs/Diagnostic Data: Laboratory Results Test 01/08/25 12:26 01/08/25 05:06 01/07/25 09:15 01/07/25 03:55 POC Glucose 128 mg/dl (70-106) White Blood Count 5.7 10^3/uL (4.4-10.8) Red Blood Count 4.08 10^6/uL (4.0-5.20) Hemoglobin 12.9 g/dL (12.2-16.2) Hematocrit 36.7 % (36.0-46.0) Mean Corpuscular Volume 90.1 fL (80.0-100.0) Mean Corpuscular Hemoglobin 31.6 pg (28.0-32.0) Mean Corpuscular Hemoglobin Concent 35.1 g/dL (32.0-36.0) Red Cell Distribution Width 14.3 % (11.8-14.3) Platelet Count 231 10^3/uL (140-450) Mean Platelet Volume 7.8 fL (6.9-10.8) Neutrophils (%) (Auto) 65.1 % (37.0-80.0) Lymphocytes (%) (Auto) 18.1 % (10.0-50.0) Monocytes (%) (Auto) 12.6 % (0.0-12.0) Eosinophils (%) (Auto) 3.3 % (0.0-7.0) Basophils (%) (Auto) 0.9 % (0.0-2.0) Neutrophils # (Auto) 3.7 10 ^3/uL (1.6-8.6) Lymphocytes # (Auto) 1.0 10 ^3/uL (0.4-5.4) Monocytes # (Auto) 0.7 10 ^3/uL (0-1.3) Eosinophils # (Auto) 0.2 10 ^3/uL (0-0.8) Basophils # (Auto) 0.1 10 ^3/uL (0-0.2) Nucleated Red Blood Cells 0.1 % Sodium Level 137 mmol/L (136-145) Potassium Level 3.7 mmol/L (3.5-5.1) Chloride Level 105 mmol/L (98-107) Carbon Dioxide Level 22 mmol/L (20-31) Anion Gap 10 (5-15) Blood Urea Nitrogen 7 mg/dL (9-23) Creatinine 0.58 mg/dL (0.550-1.02) Glomerular Filtration Rate Calc 94 mL/min (>90) BUN/Creatinine Ratio 12.1 (10.0-20.0) Serum Glucose 113 mg/dL (74-106) Calcium Level 9.0 mg/dL (8.7-10.4) B-Type Natriuretic Peptide 114.18 pg/mL (0-100) Vitamin B12 Level 2928 pg/mL (211-911) Vitamin D 25-Hydroxy 29.4 ng/mL (30.0-100) Troponin I High Sensitivity 220 ng/L (</=34) Hemoglobin A1c 6.4 % A1C (<5.7) Total Bilirubin 1.1 mg/dL (0.2-1.0) Aspartate Amino Transferase (AST) 41 U/L (13-40) Alanine Aminotransferase (ALT) 38 U/L (7-40) Alkaline Phosphatase 54 U/L (46-116) Total Protein 6.9 g/dL (5.7-8.2) Albumin 4.3 g/dL (3.2-4.8) Lipase 45 U/L (12-53) Thyroid Stimulating Hormone (TSH) 3.79 uIU/mL (0.55-4.78) Test 01/06/25 23:12 01/06/25 20:37 01/06/25 17:45 01/06/25 17:07 Lactic Acid Level 2.0 mmol/L (0.4-2.0) Prothrombin Time 11.2 sec (9.3-11.8) Prothrombin Time INR 1.06 (0.9-1.15) Urine Color Colorless (Yellow) Urine Clarity Turbid (Clear) Urine pH 6.5 (5.0-9.0) Urine Specific [place] 1.005 (1.001-1.035) Urine Protein Negative (Negative) Urine Ketones Negative (Negative) Urine Blood Negative /uL (Negative) Urine Nitrite Negative (Negative) Urine Bilirubin Negative (Negative) Urine Urobilinogen Normal mg/dL (Negative) Urine Leukocyte Esterase Negative /uL (Negative) Urine RBC 1 /hpf (0 - 4) Urine Microscopic WBC 2 /HPF (0-5) Urine Squamous Epithelial Cells Mod /hpf (<5) Urine Bacteria None seen /hpf (None Seen) Urine Osmolality 167 mOsm/kg Urine Sodium 26 mmol/L (40-220) Urine Glucose Normal mg/dL (Normal) Urine Opiates Screen Neg (NEGATIVE) Urine Fentanyl Screen Neg (NEGATIVE) Urine Barbiturates Screen Neg (NEGATIVE) Urine Phencyclidine Screen Neg (NEGATIVE) Urine Amphetamines Screen Neg (NEGATIVE) Urine Benzodiazepines Screen Neg (NEGATIVE) Urine Cocaine Screen Neg (NEGATIVE) Urine Cannabinoids Screen Neg (NEGATIVE) Serum Osmolality 274 mOsm/kg (278-298) Other Laboratory Tests 01/08/25 05:06 Brief Hx & Hospital Course: This is a 74-year-old female with past medical history of NIDDM, HTN, osteoporosis, breast cancer status post surgery, radiotherapy and chemotherapy, GERD, coronary artery disease status post angioplasty came to ER with a complaint of lower abdominal pain for last 3 days which is 7/10 intensity, localized, mild relieved with Tylenol and no aggravating factor. Patient lower abdominal pain associated with nausea but no vomiting. Patient also complained of chest pain during arrival to the hospital . Patient history of PTCA with 1 stent in 2019, seen by Dr. Felipe. Patient currently denies any SOB, friends headache, diarrhea, or any acute symptoms. Past medical history : NIDDM, HTN, coronary artery disease status post PCI with 1 stent placed in 2019 osteoporosis, breast cancer status post surgery, radiotherapy and chemotherapy, GERD Surgical history: Hysterectomy, cholecystectomy, PTCA, malignant tumor removed in left breast status post surgery Family history: noncontributory Personal history: Denies any smoking, drinking, drug use Lives with: Family Trouble Clerk: Dr. Felipe Hospital course: NSTEMI type 2 and UTI symptomatic by abdominal pain, requiring IV fluids, IV antibiotics and NPO for 24 hours. Completed abdomen and pelvis CT which showed nephrolithiasis with no obstruction, no acute findings. Patient treated with IV antibiotic due to urinary tract infection. Cardiology consulted and recommended continue antibiotic, aspirin, statin and follow up as outpatient. Echo on 01/08/2025 shows [id number] concentric left ventricular hypertrophy, EF 60%. Currently patient denies any SOB, chest pain, headache, abdominal pain, cough, dysuria or any other acute distress. Patient is hemodynamically stable for discharge. The patient has received maximum benefits from inpatient treatment. Time was given to answer patient/ parents questions and concerns in Layman terms. patient verbalized understanding and agree with treatment and follow-up. Patient was recommended to return to the ED if she experiences any worsening symptoms such as, but not limited to current symptoms. Continue current home medication. Follow-up with discharge Clinic within 1 weeks, Tuesday morning and with primary care 2 weeks after discharge. Also follow up with private gambling cashier 2-4 weeks after discharge from hospital. Patient educated and advised to resume home medication. Goals of care discussed with the patient for over 18 minutes: Full code status Discussed plan with Dr. Song, patient and nurses Physical examination General: Patient alert and oriented in person, place and time. Patient following commands. HEENT: Normocephalic, atraumatic, moist mucous membranes Respiratory/pulmonary: Clear lungs bilaterally, vesicular murmurs present in almost all lung ya, no associated crackles or wheezes. Cardiovascular: Normal heart sounds S1 and S2 with no associated murmurs Abdomen: Soft, suprapubic area tender on deep palpation Extremities: There is no peripheral edema present at the lower extremities. Peripheral Pulses: 3+ Radial (R). 3+ Radial (L). 3+ Dorsalis pedis (R). 3+ Dorsalis pedis(L) Skin: No rashes or pruritus, there is no sacral edema present at this time. Neurological: Intact cranial nerves with no focal neurologic deficits Operations or Procedures ORDERING PHYSICIAN: BEKA OQUENDO MD PROCEDURE(s): ABPL - CT AB PEL WO CON-NO ORAL OR IV REASON: gastritis ORDER NUMBER(s): [id number], ACCESSION NUMBER(s): [id number] Exam: CT CT AB PEL WO CON-NO ORAL OR IV History: gastritis Comparison Study: None TECHNIQUE: Multidetector CT of the abdomen and pelvis was performed from lung bases to pubic symphysis. Imaging was performed without IV contrast. Axial, coronal, and sagittal multiplanar reformats were obtained from the axial data set by the technologist. RADIATION DOSE: DLP 358.31 mGy.cm; CTDI vol 6.91 mGy. Findings: Lungs: Right lower lobe peripheral nodular opacities. Right lower lobe granuloma. Heart: No cardiomegaly or pericardial effusion. Severe coronary atherosclerosis versus stents. Liver: Unremarkable. Gallbladder: Cholecystectomy. Spleen: Unremarkable Pancreas: Unremarkable Adrenals: Unremarkable Kidneys: Nonobstructive left nephrolithiasis. GI tract: Small hiatal hernia. Diverticulosis without evidence of acute diverticulitis. : Unremarkable. Vasculature: Mild aortoiliac atherosclerosis. Lymphadenopathy: Absent Peritoneum: No ascites Musculoskeletal: Severe multilevel degenerative changes of the thoracolumbar spine. Soft tissues: Miniscule fat containing periumbilical hernia. Bilateral gluteal injection granulomas. Unremarkable Impression: 1. No acute abdominopelvic abnormalities. 2. Diverticulosis without evidence of acute diverticulitis. 3. Small hiatal hernia. 4. Nonobstructive left nephrolithiasis. 5. Right lower lobe peripheral nodular opacities may reflect an infectious / inflammatory etiology. ATED BY: MEENA BAKER DO DICTATED DATE/TIME: 01/06/251846 Condition at Discharge: Stable Final Diagnosis/Problems List NSTEMI type 2 Elevated troponin due to demand ischemia History of CAD status post angioplasty Complicated cystitis hospital Pancreatitis Diverticulosis Type 2 diabetes mellitus Osteoporosis Right lung lower lobe perihilar nodule Essential hypertension History of breast cancer Hyponatremia Transaminitis GERD Discharge Disposition: Home Discharge Instruct/Medications Diet: Consistent carbohydrate Activity: No Restrictions, As Tolerated Follow Up/Referral: FOLLOW-UP WITH PRIMARY CARE WITHIN 1 WEEKS AFTER DISCHARGE FOLLOW-UP WITH [facility]PATIENT [facility] TUESDAY MORNING WITHIN 2 WEEKS DISCHARGE FOLLOW-UP WITH CARDIOLOGY WITHIN 2 WEEKS DISCHARGED FROM HOSPITAL Scheduled Aspirin (Aspirin Low Dose), 1 TAB PO DAILY, (Reported) Atenolol (Atenolol), 1 TAB PO DAILY, (Reported) Cephalexin (Keflex Capsule), 1 CAP PO QID Clopidogrel Bisulfate (Clopidogrel), 1 TAB PO DAILY, (Reported) Ergocalciferol (Vitamin D 76666 Unit), 50,000 UNIT PO Q7D Isosorbide Mononitrate (Isosorbide Mononitrate Er), 1 TAB PO DAILY, (Reported) Letrozole (Letrozole), 1 TAB PO DAILY, (Reported) Metformin Hydrochloride (Metformin Hcl), 1 TAB PO BID, (Reported) Pantoprazole Sodium Sesquihydr (Pantoprazole Sodium), 40 MG PO DAILY Miscellaneous Medications Lisinopril & Hydrochlorothiazi (Lisinopril/Hydrochlorothi), 1, (Reported) Discharge Statement: "Patient was advised to return to the ER or call 911 if any headaches, dizziness, shortness of breath, chest pain, abdominal pain, bleeding, fevers, or worsening of medical condition. Patient was counseled about treatment plan, medications, possible side effects, patientverbalized understanding. All questions were answered to the best of my ability. This discharge took greater then 30 minutes in planning, reviewing documentation, counseling the patient, and discussing with other team members." ASSESSMENT ASSESSMENT Assessment CHRONIC UNSTABLE ANGINA. Date of Service: Jan 08, 2025 Billing Provider: CANDICE SONG MD Common Visit Codes: [id number] DISCH DAY >30min ZULEMA BLANTON RESIDENT Jan 08, 2025 21:33 ALBERT CARLSON RESIDENT Jan 09, 2025 17:35 CANDICE SONG MD Jan 12, 2025 21:40
== END 2025-01-08 18:40 | disposition home or self-care (01) | DRG 281 ==
LOC: ER 16:25 → OVERFLOW 22:23 → TELE-WESTW 01-07 15:47
PROVIDERS: ADMIT Student in an Organized Health Care Education/Training Program; ATTEND Student in an Organized Health Care Education/Training Program
DX: I25.110 Atherosclerotic heart disease of native coronary artery with unstable angina pectoris (principal); E87.1 Hypo-osmolality and hyponatremia; I21.A1 Myocardial infarction type 2; N12 Tubulo-interstitial nephritis, not specified as acute or chronic; K86.1 Other chronic pancreatitis; N30.90 Cystitis, unspecified without hematuria; K21.9 Gastro-esophageal reflux disease without esophagitis; I25.10 Atherosclerotic heart disease of native coronary artery without angina pectoris; K29.00 Acute gastritis without bleeding; E11.9 Type 2 diabetes mellitus without complications; N20.0 Calculus of kidney; R74.01 Elevation of levels of liver transaminase levels; M81.0 Age-related osteoporosis without current pathological fracture; I10 Essential (primary) hypertension; K57.30 Diverticulosis of large intestine without perforation or abscess without bleeding; K44.9 Diaphragmatic hernia without obstruction or gangrene; J84.10 Pulmonary fibrosis, unspecified; E86.1 Hypovolemia; Z90.710 Acquired absence of both cervix and uterus; Z95.5 Presence of coronary angioplasty implant and graft; Z85.3 Personal history of malignant neoplasm of breast; Z90.49 Acquired absence of other specified parts of digestive tract; Z79.899 Other long term (current) drug therapy
CPT/HCPCS: 36415; 74176; 80048; 80053; 80307; 81001; 82306; 82607; 82962; 83036; 83605; 83690; 83880; 83930; 83935; 84300; 84443; 84484; 85025; 85610; 87086; 93005; 93306; 96361; 96374; 99291; G0378; J1815; J2405; J2470